=== PATIENT | male | born 1960 | race Caucasian/White ===

== ENCOUNTER 2019-06-05 11:56 | Emergency (ER) | payer BC ==
--- NOTE | 2019-06-05 12:03 | UC ---
Throat Pain/Nasal Fermin HPI - HPI Summary HPI Summary: 59 yo male presents with URI symptoms. He tells me that he has been sick with sinus infections since February 2019. Has been on zpak, biaxin, and levaquin x14 days. Each time his symptoms will improve for a few days and then return. Currently he tells me that he has had a runny nose and sinus congestion for 1 week - this feels like it is improving. Over the last 3-4 days has had post nasal drip, dry cough, and a raw scratchy throat that is most concerning to him. Has tessalon and guaifen/codeine from his PCP and these are not helping. He does not smoke. Denies fever, chills, SOB, chest pain. - History of Current Complaint Stated Complaint: ST Time Seen by Provider: 06/05/19 12:03 Hx Obtained From: Patient Onset/Duration: Gradual Onset Severity: Moderate Pain Intensity: 5 Pain Scale Used: 0-10 Numeric Cough: Nonproductive - Allergies/Home Medications Allergies/Adverse Reactions: Allergies Allergy/AdvReac Type Severity Reaction Status Date / Time Penicillins Allergy Unknown Unknown Verified 06/05/19 12:13 Reaction Details Home Medications: Home Medications Guaifen/Phenyleph/Acetaminophn [Mucinex Fast-Max Cold & S] 12 tab PO PRN [History] Ibuprofen TAB* [Advil TAB*] 600 mg PO Q6H PRN 06/05/19 [History Confirmed ] Metoprolol Succinate 50 mg PO BID 06/05/19 [History Confirmed 06/05/19] PMH/Surg Hx/FS Hx/Imm Hx Cardiovascular History: Hypertension - Surgical History Surgical History: Yes Surgery Procedure, Year, and Place: - Family History Known Family History: Positive: Hypertension - Social History Lives: With Family Alcohol Use: Occasionally Substance Use Type: None Smoking Status (MU): Former Smoker Review of Systems All Other Systems Reviewed And Are Negative: No Constitutional: Positive: Negative Skin: Positive: Negative Eyes: Positive: Negative ENT: Positive: Sore Throat, Nasal Discharge, Sinus Congestion Respiratory: Positive: Cough Cardiovascular: Positive: Negative Gastrointestinal: Positive: Negative Neurovascular: Positive: Negative Neurological: Positive: Negative Psychological: Positive: Negative Physical Exam - Summary Physical Exam Summary: GENERAL: NAD. WDWN. No pain distress. SKIN: No rashes, sores, lesions, or open wounds. HEENT: Head: AT/NC Eyes: EOM intact. Conjunctiva clear without inflammation or discharge. Ears: Hearing grossly normal. TMs intact, no bulging, erythema, or edema. Nose: Nasal mucosa pink and moist. NTTP maxillary and frontal sinus. Throat: Posterior oropharynx without exudates, erythema, or tonsillar enlargement. Uvula midline. NECK: Supple. Nontender. No lymphadenopathy. CHEST: CTAB. No r/r/w. No accessory muscle use. Breathing comfortably and in no distress. CV: RRR. Pulses intact. Cap refill <2seconds NEURO: Alert. PSYCH: Age appropriate behavior. Triage Information Reviewed: Yes Vital Signs: Vital Signs: Temp Pulse Resp BP Pulse Ox 97.6 F 106 20 143/75 99 06/05/19 12:16 06/05/19 12:16 06/05/19 12:16 06/05/19 12:16 06/05/19 12:16 Laboratory Tests 06/05/19 12:14 Group A Strep Rapid Negative Vital Signs Reviewed: Yes Throat Pain/Nasal Course/Dx - Course Course Of Treatment: POC strep negative. Suspect his symptoms are allergic/irritant in nature. Recommended that he take daily claritin and mucinex and f/u with ENT for further evaluation. - Differential Dx/Diagnosis Provider Diagnosis: Sore throat Discharge ED - Sign-Out/Discharge Documenting (check all that apply): Patient Departure All imaging exams completed and their final reports reviewed: No Studies - Discharge Plan Condition: Stable Disposition: HOME Patient Education Materials: Pharyngitis (ED), Rhinosinusitis (ED) Referrals: No Primary Care Phys,NOPCP [Primary Care Provider] - Mehdi Montalvo MD [Medical Doctor] - As Soon As Possible Dave Carson MD [Medical Doctor] - As Soon As Possible Additional Instructions: Your strep test was negative today. If you develop a fever, shortness of breath, chest pain, new or worsening symptoms - please call your PCP or go to the ED immediately. Your blood pressure was high at todays visit. Please see your primary provider within 4 weeks for recheck and re-evaluation. Given your continued symptoms despite multiple rounds of antibiotics - I recommend that you call an Ear, Nose, and Throat doctor at the number below to schedule an appointment for further evaluation. - Billing Disposition and Condition Condition: STABLE Disposition: Home
--- OUTSIDE RECORDS SUMMARY | 2019-06-05 12:04 | XMS REPORT | Continuity of Care Document ---
:1960 External Reference #:[id number] Author Name Kathy Dalton FNP Address [address] [place] [address] Care Team Providers Name Role Phone Deniz Shah MD # - Otolaryngology Care Team Information [employer]visor [employer] Angela Antony Agnp - Adult Medicine Care Team Information Supervisor [employer] Problems Active Problems Provider Date Essential hypertension Elton Stein MD Onset: 09/03/2010 Palpitations Elton Stein MD Onset: 09/03/2010 Benign prostatic hypertrophy without outflow Elton Stein MD Onset: 09/03 obstruction Tinnitus Elton Stein MD Onset: 09/03/2010 Right upper quadrant pain Elton Stein MD Onset: 06/09/2011 Social History Type Date Description Comments Sex Unknown ETOH Use Denies alcohol use Tobacco Use Start: Unknown End: Unknown Patient is a former smoker quit 2010 Tobacco Use Start: Unknown Smoke Free Home Smoking Status Reviewed: 08/21/18 Smoke Free Home Allergies, Adverse Reactions, Alerts Active Allergies Reaction Severity Comments Date Penicillin 09/03/2010 Medications Active Medications SIG Qnty Indications Ordering Date Provider Guaifenesin-Codeine 10 ml by mouth 240ml R05 Kathy Dalton, 04/09/2019 every four hours [employer] 100-10mg/5ML Syrup as needed for cough Levofloxacin 1 tab by mouth 10tabs J01.90 Kathy Dalton, 04/09/2019 750mg every day x 10 S[employer] Tablets days Sudafed 2 tabs by mouth 240tabs J01.90 Kathy Dalton, 04/09/2019 30mg Tablets every 6 hours 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 for sinus congestion Mupirocin Calcium Apply a small 22grams J20.9 Powers, 03/21/2019 2% amount to fever KRISTOPHER Daley Cream blister on face 2 times daily for 7 days Ventolin HFA take 2 puffs every 1units R05 Elton Stein, 08/01/2018 6 hours as needed 108(90Base) mcg/Act wheezing Aerosol Metoprolol Tartrate take 1 tablet by 180tabs R00.2 Elton Stein, 2013 mouth twice a day 50mg Tablets Paroxetine HCL take one tablet by 30tabs F41.9 Elton Stein, 08/02/2013 20mg mouth once daily MD Tablets at night History Medications Azithromycin take on tablet 5tabs J20.9 Elton Stein, 03/21/2019 - 250mg by mouth daily 03/31/2019 Tablets for 5 days. Benzonatate take 1 tab by 30caps J20.9 Gio, 03/21/2019 - 100mg mouth 3 times KRISTOPHER Daley 04/09/2019 Capsules daily as needed for cough Prednisone take 2 tabs by 10tabs J20.9 Elton Stein, 03/21/2019 - 20mg Tablets mouth daily for MD 03/31/2019 5 days Immunizations CPT Code Status Date Vaccine Lot # [id number] Given 09/03/2010 Tdap [id number] Refused 04/19/2017 Influenza Vaccine over 3 Quad Preservative Free [id number] Refused 08/02/2013 Influenza Vaccine Vital Signs Date Vital Result Comment 04/09/2019 1:32pm Height 73 inches 6'1" Weight 276.00 lb Weight 125.194 kg Body Temperature 98.2 F Body Temperature 36.8 C Heart Rate 78 /min O2 % BldC Oximetry 98 % Respiratory Rate 18 /min BP Systolic 134 mmHg BP Diastolic 78 mmHg Pain Level 0 BMI (Body Mass Index) 36.4 kg/m2 03/21/2019 6:00pm Weight 275.00 lb Weight 124.740 kg Body Temperature 97.1 F Body Temperature 36.2 C Heart Rate 86 /min Respiratory Rate 18 /min BP Systolic 155 mmHg BP Diastolic 92 mmHg Pain Level 9 Mouth sores Results Description No Information Available Procedures Description No Information Available Medical Devices Description No Information Available Encounters Type Date Location Provider Dx Diagnosis Office Visit 04/09/2019 1:30p [facility] Kathy Dalton FNP R05 [facility] J01.90 Acute sinusitis, unspecified Office Visit 03/21/2019 6:30p After Hours Melisa Powers0.9 Acute bronchitis, Urgent Care KRISTOPHER Daley unspecified Assessments Date Code Description Provider 04/09/2019 R05 Cough Kathy Dalton FNP 04/09/2019 J01.90 Acute sinusitis, unspecified aKthy Dalton FNP 03/21/2019 J20.9 Acute bronchitis, unspecified Thuy Powers NP Plan of Treatment 04/09/2019 - Kathy Dalton [id number] CoughNew Medication:Guaifenesin-Codeine 100- 10 mg/5ML - 10 ml by mouth every four hours as needed for coughNew Xrays:Chest Xray 2 Views, Ordered: 04/09/19J01.90 Acute sinusitis, unspecifiedNew Medication :Levofloxacin 750 mg - 1 tab by mouth every day x 10 daysSudafed 30 mg - 2 tabs by mouth every 6 hours as needed for sinus congestion Functional Status Description No Information Available Mental Status Description No Information Available Referrals Description No Information Available
[2019-06-05 12:23] VITALS: BP 143/75
== END 2019-06-05 12:32 | disposition home or self-care (01) ==
LOC: UCCORT 11:56
DX: J02.9 Acute pharyngitis, unspecified (principal); I10 Essential (primary) hypertension; R09.89 Other specified symptoms and signs involving the circulatory and respiratory systems; R09.81 Nasal congestion; R05 Cough; Z88.0 Allergy status to penicillin; Z79.899 Other long term (current) drug therapy; Z87.891 Personal history of nicotine dependence
CPT/HCPCS: 87651; 99211; G0463